=== PATIENT | female | born 1955 | race Caucasian/White ===

== ENCOUNTER → 2020-03-25 | Outpatient (CLI) | payer MEDICARE ==
[~2020-03-25] MED LIST: ASA81BEC PO; BENADRYL25 MG PO; CELEXA40 MG PO; FLOMAX0.4 MG PO; GLUCOSAMINE S1000 M1 PO; LEVO-T100 MCG PO; LOPRESSOR50 MG PO; NEURONTIN 400M400 M2 PO; NORCO 5-325 TA1 EAC1 PO; PROAIR HFA8.5 GM INH
== END ==
LOC: M.LAB 11:23
PROVIDERS: ATTEND Orthopaedic Surgery
DX: Z01.812 Encounter for preprocedural laboratory examination (principal); Z11.59 Encounter for screening for other viral diseases

== ENCOUNTER → 2020-03-28 | Day surgery (SDC) | payer MEDICARE ==
[2020-03-28 12:31] LABS: HEMATOCRIT 42.3 % (37.0-47.0); HEMOGLOBIN 14.6 gm/dL (12.0-15.0); MCHC 34.5 g/dL (28.0-37.0); MCV 92.8 fL (80.0-100.0); MPV 8.4 fl. (7.2-11.1); RBC 4.56 mil/uL (4.20-5.00); RDW-CV 12.7 % (10.5-14.5); WBC 5.7 thou/uL (4.0-11.0)
[2020-03-28 12:39] LABS: CALCIUM 8.5 mg/dL (8.5-10.1); CREATININE 1.1 mg/dL (0.6-1.3); POTASSIUM 4.6 mmol/L (3.5-5.1)
--- NOTE | 2020-03-28 16:13 | EKG ---
[place] [address] ELECTROCARDIOGRAM REPORT Name: JUNE SHANKAR Room: [facility]#: [id number] Admission: 03/28/20 Attend Phys: Florentin Villatoro, Discharge: Date of : 53 Date of Service: 03/28/20 1309 Report #: [id number] THIS REPORT FOR: //name// [facility] Test Date: 2020-03-28 Test Time: 13:09:12 Pat Name: JUNE SHANKAR Department: Room: Gender: Sander Operator: : 1955 Requested By: Florentin Villatoro Order Number: [id number] Patrick MD: Yonathan Dennison Measurements Intervals [place] Rate: 52 P: 4 MT: 199 QRS: 50 QRSD: 109 T: 81 QT: 455 QTc: 424 Interpretive Statements Sinus rhythm Low voltage, precordial leads Nonspecific T abnormalities, anterior leads No previous ECG available for comparison Electronically Signed On 03-28-2020 16:12:44 CDT by Yonathan Dennison [email or web address] <ELECTRONICALLY SIGNED> By: Yonathan Dennison MD, [facility] 03/28/20 1612 1309 130 Yonathan Dennison MD, FAC /EPI
--- NOTE | 2020-04-01 08:52 | OP ---
[address] [address] OPERATIVE REPORT Name: RAADJUNE Cheung Room: [facility]#: [id number] Admission: 03/28/20 Attend Phys: Florentin Villatoro II Discharge: Date of : 53 Report #: [id number] THIS REPORT FOR: //name// cc: Celia Rodríguez MD, Lin W. MD ~ THIS REPORT FOR: //name// CC: Celia Villatoro DATE OF SERVICE: 03/28/2020 PREOPERATIVE DIAGNOSIS: Right radial shaft fracture. POSTOPERATIVE DIAGNOSIS: Right radial shaft fracture. PROCEDURE: Right radial shaft fracture open reduction internal fixation. SURGEON: Florentin Villatoro II, DO MANAGER OF RADIOLOGY: LANDON Garcia ANESTHESIA: Per operative record. ESTIMATED BLOOD LOSS: Minimal. ANTIBIOTICS: Per operative record. DRAINS: None. COMPLICATIONS: None. CONDITION: Stable to recovery room. DESCRIPTION OF PROCEDURE: The patient was taken to the operative suite and placed supine on the operative table, given appropriate anesthesia. The patient had a well-padded tourniquet applied to the upper extremity which was inflated to 250 mmHg after Esmarch exsanguination for duration of procedure. The arm was sterilely prepped and draped. Surgery began by incision of the volar aspect of the right radial shaft fracture. This was carried down to the subcutaneous tissues. Careful dissection was made to visualize the fracture site without disruption of any neurovascular structures. The fracture was reduced and held with reduction forceps. There was a previous distal radius plate, which was implanted. A proximal plate was then utilized above this plate slightly off to one side due to overlying hardware. This was fixated utilizing locking and nonlocking screws in appropriate fashion and visualized [place] [address] OPERATIVE REPORT Name: JUNE SHANKAR Room: [facility]#: [id number] Admission: 03/28/20 Attend Phys: Florentin Villatoro II Discharge: Date of : 53 Report #: [id number] excellent anatomic position. Final irrigation was performed. The subcuticular layer was then closed utilizing 2-0 Vicryl. Skin was closed with 3-0 Monocryl with Dermabond and sterile dressing and a splint was applied. The patient transported to recovery room in stable condition. Counts were correct throughout the procedure. <ELECTRONICALLY SIGNED> By: Florentin Villatoro II, DO 04/01/20 0852 0019 0250Florentin Villatoro II, DO /nt
== END | disposition home or self-care (01) ==
LOC: EDSTATUS 05:39 → M.SUR 11:44
PROVIDERS: ATTEND Orthopaedic Surgery
DX: S52.301A Unspecified fracture of shaft of right radius, initial encounter for closed fracture (principal); I10 Essential (primary) hypertension; E11.9 Type 2 diabetes mellitus without complications; J44.9 Chronic obstructive pulmonary disease, unspecified; E78.00 Pure hypercholesterolemia, unspecified; F32.9 Major depressive disorder, single episode, unspecified; M19.90 Unspecified osteoarthritis, unspecified site; M81.0 Age-related osteoporosis without current pathological fracture; Z79.899 Other long term (current) drug therapy; Z90.49 Acquired absence of other specified parts of digestive tract; Z98.51 Tubal ligation status; Z98.890 Other specified postprocedural states; Z80.1 Family history of malignant neoplasm of trachea, bronchus and lung; W19.XXXA Unspecified fall, initial encounter; Y93.89 Activity, other specified; Y92.89 Other specified places as the place of occurrence of the external cause; Y99.8 Other external cause status